=== PATIENT | male | born 1940 | race Caucasian/White ===

== ENCOUNTER 2024-05-04 08:27 | Day surgery (SDC) | payer MEDICARE, BC, SELFPAY ==
[2024-05-04] VITALS (11 sets, daily range): BP systolic 93–160; BP diastolic 57–93; PULSE 56–73; RESP 14–20; TEMP 36–36.9; O2SAT 93–96; BMI 29.1
[2024-05-04] MEDS: LACTATED RINGERS 1000 ML 1,000 ML 100 ML IV (09:25)
[2024-05-04] MEDS: SODIUM CHLORIDE 0.9 % (FLUSH) 10 ML SYRINGE IVF (09:29)
--- NOTE | 2024-05-04 10:18 | W.ANESCHARGE ---
Anesthesia Charges Start Date/Time Anesthesia Start Date: 05/04/24 Anesthesia Start Time: 10:53 Stop Date/Time Anesthesia Stop Date: 05/04/24 Anesthesia Stop Time: 11:50 Summary Extremes of Age - Over 70 or under 1: MDA
[2024-05-04] MEDS: CEFAZOLIN 2 GM INJ IVP (11:09)
--- NOTE | 2024-05-04 11:24 | SUR.OPER ---
PATIENT QUESTIONS ANSWERED SATISFACTORILY PREOPERATIVELY.? PATIENT BROUGHT TO OR #3 PER CART.? Patient positioned supine on OR #3 bed.? The perioperative?team supported arms bilaterally on arm boards.? Final approval of positioning by surgeon.? CONTINUOUS IRRIGATION OF THE LEFT KNEE DURING THE PROCEDURE WITH 3000cc BAGS NACL.
[2024-05-04] MEDS: BUPIVACAINE 0.25% 30 ML INJECTION (11:39)
--- NOTE | 2024-05-04 11:46 | P.ORPRC_ITS ---
Procedure Note Date of procedure: 05/04/24 Procedure: PREOPERATIVE DIAGNOSIS: Left knee medial and lateral meniscus tear POSTOPERATIVE DIAGNOSIS: Left knee medial and lateral meniscus tear NAME OF OPERATION: Left knee arthroscopic partial medial and lateral meniscectomy SURGEON: Jovan Haile MD PRESCHOOL ASSISTANT DIRECTOR: Clemencia Castanon PA-C ANESTHESIA: Spinal ESTIMATED BLOOD LOSS: 0 mL COMPLICATIONS: None SPECIMENS: None DRAINS: None PREOPERATIVE ANTIBIOTICS: Ancef 2 gram INDICATIONS: The patient is a 83-year-old with a history of left knee medial pain. MRI scan is consistent with a medial and lateral meniscus tear. Despite appropriate nonoperative management, including activity modification, antiinflammatories, [id number] pain medication, bracing, physical therapy, and injections they continue to have pain and disability. Operative intervention was offered. The risks, benefits and expected outcomes were discussed in detail. These included but were not limited to: Infection, bleeding, injury to blood vessel or nerve, venous thromboembolism. All questions were answered to their satisfaction. PROCEDURE: Spinal anesthesia was administered. The patient was placed supine on the operating room table. The left lower extremity was prepped and draped in the usual sterile fashion. The limb was exsanguinated with the Jaime bandage. The pneumatic tourniquet was inflated to 300 mmHg. A standard anterolateral portal was established. The arthroscope was introduced. The working portal was established anteromedially. Diagnostic arthroscopy was performed with findings as follows: The suprapatellar pouch is normal. Articular surface on the patella shows diffuse grade 2 change. Articular surface on the trochlea shows diffuse grade 2 change, focal grade 3 change distally. The medial gutter is normal. The medial compartment shows diffuse grade 3 change on the medial femoral condyle, grade 2 change on the medial tibial plateau. The medial meniscus has a degenerative tear of undersurface of the posterior horn, into the midbody. This primarily consists of horizontal cleavage tearing. There is a small parameniscal cyst off of the posterior tibial attachment of the medial meniscus, just adjacent to the PCL insertion. The notch shows the ACL to be intact. The lateral compartment shows normal articular cartilage on the lateral femoral condyle and lateral tibial plateau. The lateral meniscus has some degenerative fraying of the lead ing edge of the anterior horn, midbody and posterior horn. The lateral gutter is normal. The posterior horn of the medial meniscus was debrided to a stable base using a combination of yasmani through both portals. Likewise, the leading edge of the lateral meniscus was debrided with the shaver through both portals. The parameniscal cyst off of the posterior horn the medial meniscus was debrided with the shaver. Arthroscopic instruments were removed, the portal sites were Steri-Stripped closed, the knee was infiltrated with 30 mL of 0.25% Marcaine without epinephrine. A dry dressing was applied, the tourniquet was released. Sponge and needle counts were correct x 2. The patient tolerated the procedure well. There were no apparent complications. They were carefully transferred to the hospital bed and taken to the postanesthesia care unit in satisfactory condition. PLAN: The patient will be discharged to home. They may weightbear as tolerates. Range of motion will be unrestricted. They will follow up in the office next week for a wound check.
== END 2024-05-04 13:16 | disposition home or self-care (01) ==
PROVIDERS: PCP Family Medicine; Visit Provider Orthopaedic Surgery
PROC: (CPT 29870; principal; 2024-05-04 10:45)
DX: M23.222 Derangement of posterior horn of medial meniscus due to old tear or injury, left knee (principal); M23.242 Derangement of anterior horn of lateral meniscus due to old tear or injury, left knee; E11.9 Type 2 diabetes mellitus without complications
CPT/HCPCS: 29880; 01400; 82962; 99100; J0665; J0690; J2704; J3010; J7120